=== PATIENT | male | born 1945 | race Asian ===

== ENCOUNTER 2018-03-02 08:03 | Day surgery (SDC) | payer OTHER ==
[2018-02-05 10:37] VITALS: BMI 28.1
--- NOTE | 2018-03-02 07:58 | HP ---
Satellite H - Chief Complaint Chief Complaint: right knee pain - Past Medical History Allergies/Adverse Reactions: Allergies Allergy/AdvReac Type Severity Reaction Status Date / Time No Known Drug Allergies Allergy Verified 04/14/15 10:26 Cardiovascular: Yes: HTN - Current Medications Current Medications: Home Medications Medication Instructions Recorded Aspirin Coated [Ecotrin -] 81 mg PO DAILY 04/09/15 Hydrochlorothiazide [Hctz -] 25 mg PO DAILY 04/09/15 Lisinopril [Prinivil -] 40 mg PO DAILY 04/09/15 Multivitamins [Tab-A-Vit -] 1 tab PO DAILY 04/09/15 [place]-3 Fatty Acids [Fish Oil] 300 mg PO DAILY 04/09/15 Atorvastatin Calcium [Lipitor] 20 mg PO Q48H 02/05/18 Satellite Physical Exam - Physical Examination General Appearance: Well Nourished, Well Developed, Alert & Oriented x3 ENT: Clear Lung: Normal air movement Heart: Regular rate & rhythm Extremities: Other (right knee- + swelling, + ttp medially, decr rom, nvi xrays show grade 4 medial djd) Neurological: Intact, Alert, Oriented Satellite Impression/Plan - Impression/Plan Impression: right knee medial djd Operative Procedure: right medial geni ukr Date to be Performed: 03/02/18
[~2018-03-02 08:03] MED LIST: CEFAZOLIN 2 GM in DEXTROSE 5%-WATER - 50 ML IVPB ONE; CELECOXIB 200 MG CAPSULE PO ONE; GABAPENTIN 300 MG CAPSULE (FP) PO ONE; ROPIVICAINE 0.2%/MORPH PF/KETOROLAC - 51ML DISP.SYRINGE IA ONE; TRANEXAMIC ACID 1000 MG/10 ML VIAL IVPUSH ONE
[2018-03-02] MEDS ORDERED: MIDAZOLAM HCL 2 MG/2 ML SINGLE DOSE VIAL ONE ×2 (08:17)
[2018-03-02] MEDS ORDERED: THROMBIN (BOVINE) 5,000 UNIT VIAL TP ONE ×3 (09:02→10:10)
[2018-03-02] MEDS ORDERED: GELATIN, ABSORBABLE 100 EACH SPONGE TP ONE ×3 (09:03→10:10)
[2018-03-02] MEDS ORDERED: ROPIVICAINE 0.2%/MORPH PF/KETOROLAC - 51ML DISP.SYRINGE IA ONE ×4 (09:04→10:35)
[2018-03-02] MEDS ORDERED: DEXAMETHASONE SOD PHOSPHATE 4 MG/1 ML VIAL ONE (09:18)
[2018-03-02] MEDS ORDERED: TRANEXAMIC ACID 1000 MG/10 ML VIAL ONE (09:18)
[2018-03-02] MEDS ORDERED: ceFAZolin SODIUM 1 GM VIAL ONE (09:18)
[2018-03-02] MEDS ORDERED: ONDANSETRON 4 MG/2 ML VIAL ONE (09:18)
[2018-03-02] MEDS ORDERED: MAG HYDROX/AL HYDROX/SIMETH 30 ML UNIT-DOSE CUP PO PRN (10:46)
[2018-03-02] MEDS ORDERED: ONDANSETRON 4 MG/2 ML VIAL IVPUSH PRN ×2 (10:46→11:07)
--- NOTE | 2018-03-02 10:49 | OP ---
Operative Note - Note: Operative Date: 03/02/18 (trish) Pre-Operative Diagnosis: right knee medial djd Operation: right medial geni ukr Post-Operative Diagnosis: Same as Pre-op Surgeon: Irineo Chu Ball Holder: Adriano Granados Anesthesiologist/MANAGEMENT DEVELOPER: Pierce Prescott Anesthesia: Spinal, Local Specimens Removed: bone fragments Estimated Blood Loss (mls): 50 Operative Report Dictated: Yes
[2018-03-02] MEDS ORDERED: LACTATED RINGERS SOLUTION 1,000 ML IV SCH (11:00)
[2018-03-02] MEDS ORDERED: PROMETHAZINE HCL 25 MG/1 ML VIAL IVPB PRN (11:07)
[2018-03-02] MEDS ORDERED: oxyCODONE HCL 5 MG TABLET PO PRN ×2 (11:07)
[2018-03-02] MEDS ORDERED: ACETAMINOPHEN 325 MG TABLET (FP) PO SCH (11:15)
--- NOTE | 2018-03-02 11:27 | SPEC ---
DATE OF OPERATION: 03/02/2018 PREOPERATIVE DIAGNOSIS: Degenerative joint disease, right knee. POSTOPERATIVE DIAGNOSIS: Degenerative joint disease, right knee. PROCEDURE: Right medial unicompartmental knee replacement with robotic-assisted navigation (MAKOplasty) and patelloplasty. SURGICAL ATTENDING: Irineo Chu MD SIEBEL CONSULTANT: MILO Apple ANESTHESIA: Regional and spinal. CLOSURE: Medial unicompartmental MAHESH components with a 5 femur, 5 tibia, and an 8 polyethylene; No. 1 Vicryl, fascia; 0 and 2-0, subcutaneous; 3-0 Monocryl subcuticular with skin glue; 4-0 undyed Vicryl for pin sites. ESTIMATED BLOOD LOSS: Negligible. TOURNIQUET TIME: Approximately 24 minutes. COMPLICATIONS: None. CONDITION: To recovery in stable condition. DESCRIPTION OF OPERATIVE PROCEDURE: Patient was taken to the operating room on March 02, 2018. Spinal and regional anesthesia was administered by the anesthesiologist. IV Kefzol and TXA were administered prophylactically prior to the case. A well-padded pneumatic tourniquet was placed on the right proximal thigh. The right lower extremity was prepped and draped in the usual sterile fashion. A 6- to 8-cm longitudinal incision over the medial side of the patella from mid patella to the tibial tubercle was incised and was deepened using Bovie cautery. An arthrotomy was then made just medial to the patellar tendon and the patella. Subperiosteal dissection was done on the anteromedial proximal tibia all the way back to the MCL. Partial fat pad excision was performed, exposing the medial compartment. Checkpoint was malleable at both the femur and the tibia. Using 2 stab incisions in the femur 1 handbreadth above the patella on the femur and 2 stab incisions 1 handbreadth below the tibial tubercle on the tibia, 2 threaded pins were drilled in parallel fashion from anterior to posterior, going through the proximal cortex and engaging the 2nd but not through the 2nd cortex. To these threaded pins were fastened navigation rays, 1 on the femur and 1 on the tibia. The knee was then registered with the navigation device with the center of the rotation of the hip, medial and lateral malleoli, and multiple points both on the femur and on the tibia. Excellent registration of less than 0.5 mm was obtained on both to ensure adequate registration. The navigation device ensured us to "pop the bubbles" both on the femur and the tibia and that was performed and passed registration. The knee was then thoroughly inspected to remove all osteophytes both on the femur and the tibia. Also, osteophytes on the trochlea and on the surface of the patella were removed as well. The knee was then stressed with valgus stress at 0, 30, 60, 90, and 120 degrees of flexion. This propagated a looseness/tightness graft. The virtual positions of the components were then optimized to ensure an excellent graft. The tracking also was optimized by manipulating the virtual position to ensure that the femoral component articulated with the central portion of the tibial component. The robot was then brought into the field and was registered. The robot was used to bur the bone on both the femur and the tibia as to the specifications of the components. The trial components were then applied on both the femur and the tibia with an appropriate polyethylene insert. The knee was taken through a range of motion and found to have full extension, full flexion, with excellent stability. Stressing the graft revealed an excellent looseness/tightness graft with the trial components in place. The trial components were removed. The knee was thoroughly irrigated with a copious amount of antibiotic irrigation. The real components were then cemented in using modern generation cement techniques with antibiotic cement and pressurization. After the cement was hardened, the knee was thoroughly inspected to remove out all excess cement. The real polyethylene insert was then clipped into place. Range of motion and stability were again assessed to be as they were with the trials. At this time, the pins and the checkpoints were removed. The knee was again thoroughly irrigated. The arthrotomy was closed with No. 1 Vicryl, 0 and 2-0 subcutaneous, and 3-0 Monocryl subcuticular with skin glue for the skin, 4-0 undyed Vicryl for the pin sites. Sterile pressure dressing was placed over the knee. Patient awakened from anesthesia and transferred to recovery in stable condition. No complications. Estimated blood loss negligible. X-rays postoperatively revealed excellent position of the components. Jenny [id number]
[2018-03-02] MEDS: CEFAZOLIN 1 GM/D5W 1 GRAM/50 ML BAG IVPB SCH ×2 (16:30→23:58)
[2018-03-02] MEDS: ACETAMINOPHEN 325 MG TABLET (FP) PO SCH ×2 (18:06→23:58)
[2018-03-02] MEDS: SENNOSIDES/DOCUSATE COMBO (SENNA PLUS) TABLET (UD) PO SCH (21:20)
[2018-03-03] MEDS: ACETAMINOPHEN 325 MG TABLET (FP) PO SCH (06:37)
[2018-03-03] MEDS ORDERED: ASPIRIN 325 MG TABLET PO SCH (08:00)
[2018-03-03] MEDS: SENNOSIDES/DOCUSATE COMBO (SENNA PLUS) TABLET (UD) PO SCH (09:13)
[2018-03-03] MEDS ORDERED: LISINOPRIL 20 MG TABLET (FP) PO SCH (10:00)
[2018-03-03] MEDS ORDERED: HYDROCHLOROTHIAZIDE 25 MG TABLET (FP) PO SCH (10:00)
[2018-03-03] MEDS ORDERED: PANTOPRAZOLE 40 MG TABLET (FP) PO SCH (10:00)
[2018-03-03] MEDS ORDERED: MULTIVITAMINS (DAILY MVI) TABLET (FP) PO SCH (10:00)
[2018-03-03 10:42] VITALS: BP 125/63; PULSE 51; TEMP 97.6
[2018-03-03] MEDS ORDERED: ATORVASTATIN CA 20 MG TABLET (FP) PO SCH (22:00)
== END 2018-03-03 12:50 | disposition home health service (06) ==
LOC: FM/S 08:03 → FASU 08:03
PROVIDERS: ATTEND Orthopaedic Surgery
PROC: 8E0YXBZ Computer Assisted Procedure of Lower Extremity (ICD-10-PCS; 2018-03-02)
PROC: 8E0Y0CZ Robotic Assisted Procedure of Lower Extremity, Open Approach (ICD-10-PCS; 2018-03-02)
PROC: 0SRC0L9 Replacement of Right Knee Joint with Medial Unicondylar Synthetic Substitute, Cemented, Open Approach (ICD-10-PCS; principal; 2018-03-02 09:29)
DX: M17.11 Unilateral primary osteoarthritis, right knee (principal)
CPT/HCPCS: 20985; 27446; C1776; S2900; 73560-TC-RT-FY; 94760; 97116-GP; 97161-GP

== ENCOUNTER 2021-04-06 04:37 | Day surgery (SDC) | payer OTHER ==
[2021-04-02 16:18] VITALS: BMI 29.9
[2021-04-06 09:04] VITALS: TEMP 97.8
[2021-04-06 10:15] VITALS: BP 135/76; PULSE 60
== END 2021-04-06 10:25 | disposition home or self-care (01) ==
LOC: JASU-ENDO 04:37
PROVIDERS: ATTEND Internal Medicine Gastroenterology
PROC: 0DBL8ZX Excision of Transverse Colon, Via Natural or Artificial Opening Endoscopic, Diagnostic (ICD-10-PCS; 2021-04-06)
PROC: 0DBN8ZX Excision of Sigmoid Colon, Via Natural or Artificial Opening Endoscopic, Diagnostic (ICD-10-PCS; 2021-04-06)
PROC: 0DBP8ZX Excision of Rectum, Via Natural or Artificial Opening Endoscopic, Diagnostic (ICD-10-PCS; 2021-04-06)
PROC: 0DBF8ZX Excision of Right Large Intestine, Via Natural or Artificial Opening Endoscopic, Diagnostic (ICD-10-PCS; 2021-04-06)
PROC: 0DBC8ZX Excision of Ileocecal Valve, Via Natural or Artificial Opening Endoscopic, Diagnostic (ICD-10-PCS; 2021-04-06)
PROC: 0DBH8ZX Excision of Cecum, Via Natural or Artificial Opening Endoscopic, Diagnostic (ICD-10-PCS; principal; 2021-04-06 08:15)
DX: Z12.11 Encounter for screening for malignant neoplasm of colon (principal); K57.30 Diverticulosis of large intestine without perforation or abscess without bleeding; K62.1 Rectal polyp; D12.0 Benign neoplasm of cecum; D12.4 Benign neoplasm of descending colon; D12.7 Benign neoplasm of rectosigmoid junction; D12.3 Benign neoplasm of transverse colon; K64.8 Other hemorrhoids; Z86.010 Personal history of colon polyps
CPT/HCPCS: 88305-TC

== ENCOUNTER 2024-08-18 19:07 | Observation (INO) | payer OTHER ==
[2024-08-18] MEDS ORDERED: ONDANSETRON 4 MG/2 ML VIAL ONE (20:29)
[2024-08-18] MEDS: ONDANSETRON 4 MG/2 ML VIAL IVPUSH ONE (20:31)
[2024-08-18 21:13] LABS: POTASSIUM 4.4 mmol/L (3.5-5.1)
[2024-08-18 21:14] LABS: ALBUMIN 4.1 g/dl (3.4-5.0); BLOOD UREA NITROGEN 25.1 mg/dL (7-18); CALCIUM 9.5 mg/dL (8.5-10.1)
[2024-08-18 21:18] LABS: CREATININE 1.3 mg/dL (0.55-1.3)
[2024-08-18 21:20] LABS: BILIRUBIN,TOTAL 1.2 mg/dL (0.2-1); TOT PROT 8.2 g/dl (6.4-8.2)
[2024-08-18] MEDS ORDERED: MECLIZINE HCL 25 MG TABLET (FP) ONE (21:20)
[2024-08-18] MEDS: MECLIZINE HCL 25 MG TABLET (FP) PO ONE (21:24)
[2024-08-18 21:49] LABS: HIV INTERPRETATION NEGATIVE (NEGATIVE)
[2024-08-18 22:06] LABS: BASO % 0.6 % (0-2.0); EOS % 0.9 % (0-4.5); HEMATOCRIT 41.3 % (35.4-49); HEMOGLOBIN 13.6 GM/dL (11.7-16.9); LYMPH % 15.9 % (8-40); MCH 32.4 pg (25.7-33.7); MEAN CELL VOLUME 98.3 fl (80-96); MEAN PLT VOLUME 7.5 fl (7.5-11.1); MONO % 3.6 % (3.8-10.2); PLATELET COUNT 150 10^3/uL (134-434); WHITE BLOOD COUNT 6.8 K/mm3 (4.0-10.0)
[2024-08-18] MEDS ORDERED: MECLIZINE HCL 25 MG TABLET (FP) PO PRN (23:46)
[2024-08-18] MEDS ORDERED: ONDANSETRON 4 MG/2 ML VIAL IVPUSH PRN (23:48)
[2024-08-19] MEDS ORDERED: THIAMINE HCL 200 MG/2 ML VIAL ONE ×5 (00:17→14:28)
[2024-08-19] MEDS: THIAMINE HCL 200 MG/2 ML VIAL IVPB SCH (00:27)
[2024-08-19 02:19] LABS: COCAINE, UR NEGATIVE (NEGATIVE); URINE AMPHETAMINES NEGATIVE (NEGATIVE); URINE BARBITURATES NEGATIVE (NEGATIVE); URINE BENZODIAZEPINES NEGATIVE (NEGATIVE)
[2024-08-19 02:21] LABS: METHADONE, UR NEGATIVE (NEGATIVE); OPIATES, URI NEGATIVE (NEGATIVE); PHENCYCLIDINE,URINE NEGATIVE (NEGATIVE)
[2024-08-19] MEDS ORDERED: LORazepam 2 MG/ML SDV VIAL IVPUSH PRN ×2 (02:53→17:59)
[2024-08-19] MEDS: ATORVASTATIN CA 20 MG TABLET (FP) PO SCH ×2 (03:25→21:53)
[2024-08-19] MEDS ORDERED: ASPIRIN 325 MG TABLET ONE (05:45)
[2024-08-19] MEDS: ASPIRIN 325 MG TABLET PO ONE (05:55)
[2024-08-19] MEDS: ASPIRIN 325 MG ENTERIC COATED TABLET (FP) PO ONE (05:55)
[2024-08-19 06:30] LABS: HEMATOCRIT 41.3 % (35.4-49); HEMOGLOBIN 13.5 GM/dL (11.7-16.9); MCH 31.9 pg (25.7-33.7); MCHC 32.5 g/dl (32.0-35.9); MEAN PLT VOLUME 7.7 fl (7.5-11.1); PLATELET COUNT 150 10^3/uL (134-434); RBC 4.22 M/mm3 (4.00-5.60); WHITE BLOOD COUNT 11.5 K/mm3 (4.0-10.0)
[2024-08-19] MEDS ORDERED: MECLIZINE HCL 25 MG TABLET (FP) ONE ×2 (06:42→18:42)
[2024-08-19] MEDS: MECLIZINE HCL 25 MG TABLET (FP) PO ONE ×2 (06:43→18:43)
[2024-08-19 06:50] LABS: ALBUMIN 3.3 g/dl (3.4-5.0); CALCIUM 8.6 mg/dL (8.5-10.1)
[2024-08-19 06:51] LABS: BLOOD UREA NITROGEN 22.6 mg/dL (7-18); MAGNESIUM 1.9 mg/dL (1.8-2.4)
[2024-08-19 06:54] LABS: CREATININE 1.3 mg/dL (0.55-1.3)
[2024-08-19 06:55] LABS: BILIRUBIN,TOTAL 1.3 mg/dL (0.2-1); TOT PROT 6.9 g/dl (6.4-8.2)
[2024-08-19] MEDS ORDERED: HYDROCHLOROTHIAZIDE 25 MG TABLET (FP) ONE (09:13)
[2024-08-19] MEDS ORDERED: COLCHICINE 0.6 MG TAB ONE (09:13)
[2024-08-19] MEDS ORDERED: LISINOPRIL 20 MG TABLET ONE (09:13)
[2024-08-19] MEDS ORDERED: FOLIC ACID 1 MG TABLET (FP) ONE (09:13)
[2024-08-19] MEDS ORDERED: ENOXAPARIN NA (PORCINE) 40 MG/0.4 ML DISP.SYRIN SQ ONE (09:14)
[2024-08-19] MEDS: LISINOPRIL 20 MG TABLET PO SCH (09:16)
[2024-08-19] MEDS: HYDROCHLOROTHIAZIDE 25 MG TABLET (FP) PO SCH (09:16)
[2024-08-19] MEDS: FOLIC ACID 1 MG TABLET (FP) PO SCH (09:16)
[2024-08-19] MEDS: ENOXAPARIN NA (PORCINE) 40 MG/0.4 ML DISP.SYRIN SQ SCH (09:17)
[2024-08-19] MEDS: COLCHICINE 0.6 MG TAB PO SCH (09:17)
[2024-08-19] MEDS ORDERED: AMLODIPINE PO SCH (10:00)
[2024-08-19] MEDS ORDERED: ATORVASTATIN PO SCH (10:00)
[2024-08-19] MEDS ORDERED: [UNRECOGNIZED DRUG - OTHER] PO SCH (10:00)
[2024-08-19] MEDS ORDERED: [UNRECOGNIZED DRUG - OTHER] PO SCH (10:00)
[2024-08-19] MEDS ORDERED: ASPIRIN COATED 81 MG TABLET.EC PO SCH (10:00)
[2024-08-19] MEDS: MULTIVITAMINS THER W-MINERALS COMBO TABLET (FP) PO SCH (19:17)
[2024-08-19] MEDS: MECLIZINE HCL 25 MG TABLET (FP) PO SCH (21:53)
[2024-08-19] MEDS ORDERED: ATORVASTATIN CA 80 MG TABLET (FP) PO SCH ×2 (22:00)
[2024-08-20 05:11] VITALS: BMI 31.1
[2024-08-20 08:20] LABS: HEMATOCRIT 38.1 % (35.4-49); HEMOGLOBIN 12.6 GM/dL (11.7-16.9); MCH 32.5 pg (25.7-33.7); MEAN CELL VOLUME 98.4 fl (80-96); MEAN PLT VOLUME 7.8 fl (7.5-11.1); PLATELET COUNT 138 10^3/uL (134-434); RBC 3.87 M/mm3 (4.00-5.60); RDW 13.8 % (11.9-15.9)
[2024-08-20 08:31] LABS: POTASSIUM 3.7 mmol/L (3.5-5.1)
[2024-08-20 08:40] LABS: CALCIUM 8.3 mg/dL (8.5-10.1)
[2024-08-20 08:41] LABS: MAGNESIUM 1.9 mg/dL (1.8-2.4)
[2024-08-20 08:44] LABS: CREATININE 1.3 mg/dL (0.55-1.3); PHOSPHOROUS 2.6 mg/dL (2.5-4.9)
[2024-08-20 15:12] VITALS: BP 140/82; PULSE 88; RESP 16; TEMP 99.9
[2024-08-21] MEDS ORDERED: THIAMINE HCL 200 MG/2 ML VIAL IVPB SCH (10:00)
[2024-08-22] MEDS ORDERED: THIAMINE HCL 200 MG/2 ML VIAL IVPB SCH (10:00)
== END 2024-08-20 15:45 | disposition home or self-care (01) ==
LOC: JER 19:07 → INTOOBSV 23:26 → JERBED 23:26 → J4S 08-19 19:58
PROVIDERS: ADMIT Internal Medicine; ATTEND Internal Medicine
PROC: 3E023GC Introduction of Other Therapeutic Substance into Muscle, Percutaneous Approach (ICD-10-PCS; principal; 2024-08-18)
PROC: 3E033GC Introduction of Other Therapeutic Substance into Peripheral Vein, Percutaneous Approach (ICD-10-PCS; 2024-08-18)
DX: R42 Dizziness and giddiness (principal); F10.99 Alcohol use, unspecified with unspecified alcohol-induced disorder; I10 Essential (primary) hypertension; H55.09 Other forms of nystagmus; M10.9 Gout, unspecified; I71.40 Abdominal aortic aneurysm, without rupture, unspecified; Z95.1 Presence of aortocoronary bypass graft; Z95.5 Presence of coronary angioplasty implant and graft
CPT/HCPCS: 36415; 70450-TC; 70551-TC; 80048; 80053; 80307; 82550; 82553; 83735; 84100; 84484; 85025; 85027; 86803; 87389; 93005; 93010; 93306-TC; 96372; 96374; 97116-GP; 97161-GP; 99285-25; G0378